=== PATIENT | male | born 1975 | race Caucasian/White ===

== ENCOUNTER 2016-10-18 15:32 | Inpatient (IN) | payer OTHER ==
[~2016-10-18] VITALS: Ht 180.3 cm; Wt 95.3 kg
[~2016-10-18 15:32] MED LIST: ASPIR 8181 MG PO; ASPIRIN81 MG PO; B-125000 MC1 PO; BUSPIRONE HCL15 MG PO; CALCIUM 600 +1 EA12 PO; ELAVIL 25 MG TA25 MG PO; ELIQUIS2.5 MG PO; FERROUS SULFAT325 MG PO; FOLIC ACID 1 MG1 MG PO; FOLIC ACID1 MG PO; GLUCOPHAGE 500500 MG PO; IMDUR ER TAB 6060 MG PO; INVANZ 1 GM VIAL1 GM IV; JANUVIA 100 MG100 MG PO; K-DUR TAB 20 M20 MEQ PO; LASIX20 MG PO; LIORESAL TAB 1010 MG PO; LIPITOR TAB 2020 MG PO; LORTAB 7.5-3251 EACH PO; METOPROLOL; METOPROLOL TART25 MG PO; NEURONTIN 400400 MG PO; NEURONTIN800 MG PO; OXYBUTYNIN CHLOR5 MG PO; PLAVIX 75 MG TA75 MG PO; PROTONIX40 MG PO; ULORIC80 MG PO; VITAMIN C 500500 MG PO; ZINC50 M1 PO
[2016-10-18 18:19] LABS: HEMOGLOBIN 13.2 gm/dl (14.0-17.5); RED BLOOD COUNT 5.83 M/UL (4.20-5.50); WHITE BLOOD COUNT 11.4 K/UL (4.5-11.0)
[2016-10-18 18:32] LABS: BUN/CREATININE RATIO 16 (0-10)
[2016-10-18] MEDS ORDERED: ALL DAY ALLERGY10 M3 PO (21:07)
[2016-10-18] MEDS ORDERED: XANAX0.5 MG PO (21:08)
[2016-10-18] MEDS ORDERED: FLONASE 0.05% N16 GM ×2 (21:08→22:36)
[2016-10-18] MEDS ORDERED: SENNA CONCENTR8.6 MG PO (21:09)
[2016-10-18] MEDS ORDERED: ONCE DAILY1 EACH PO (21:16)
[2016-10-18] MEDS ORDERED: LORTAB 7.5-3251 EACH PO (21:44)
[2016-10-18] MEDS ORDERED: CETIRIZINE HCL10 MG PO (22:36)
[2016-10-18] MEDS ORDERED: MULTIVITAMINS1 EAC2 PO (22:37)
[2016-10-18] MEDS ORDERED: SENNA8.6 MG PO (22:37)
--- NOTE | 2016-10-19 00:15 | NUR ---
ADMISSION SKIN ASSESSMENT CONTINUED: LEFT POSTERIOR THIGH #1, UPPER, STAGE 1 4.5 X 6.0 CM REDDENED AREA. BLANCHES, BUT SLOWLY. LEFT POSTERIOR THIGH #2, MIDDLE, STAGE 2, 3.5 X 3.5 CM CIRCULAR, RED WOUND BED WITH WHITE EDGES WITH SURROUNDING REDNESS. NO DRAINAGE NOTED. LEFT POSTERIOR THIGH #3, LOWER, 3CM X 1CM DRY SCABBED HEALING AREA WITH SCARRING SUROUNDING. RT HEEL, 4 DRIED SCABBED AREAS WITH APPEARANCE OF HEALING. RT OUTER FOOT DRIED SCABBED AREA, APPEARANCE OF HEALING. RT ANKLE OUTER, DRY HEALED SCARRED AREA. RT FOOT EDEMATOUS, COOL TO TOUCH PULSE THREADY NOTED MULTIPLE SCATTERED SCARS AND SCABBED AREAS ON BILATERAL LOWER EXTREMITIES, CHEST, ABD BACK AND ARMS. PT STATES FROM "SORES THAT JUST POP UP AND THEN GO AWAY"
[2016-10-19 04:51] LABS: HEMOGLOBIN 12.4 gm/dl (14.0-17.5); RED BLOOD COUNT 5.49 M/UL (4.20-5.50); WHITE BLOOD COUNT 8.7 K/UL (4.5-11.0)
[2016-10-19 04:55] LABS: BUN/CREATININE RATIO 19 (0-10)
[2016-10-20 04:55] LABS: HEMOGLOBIN 12.2 gm/dl (14.0-17.5); RED BLOOD COUNT 5.38 M/UL (4.20-5.50); WHITE BLOOD COUNT 8.1 K/UL (4.5-11.0)
[2016-10-20 04:56] LABS: BUN/CREATININE RATIO 28 (0-10)
[2016-10-21 04:59] LABS: RED BLOOD COUNT 4.48 M/UL (4.20-5.50); WHITE BLOOD COUNT 7.9 K/UL (4.5-11.0)
[2016-10-21 05:00] LABS: HEMOGLOBIN 10.1 gm/dl (14.0-17.5)
[2016-10-21 05:06] LABS: BUN/CREATININE RATIO 25 (0-10)
[2016-10-22 04:33] LABS: HEMOGLOBIN 11.3 gm/dl (14.0-17.5); RED BLOOD COUNT 5.05 M/UL (4.20-5.50); WHITE BLOOD COUNT 8.7 K/UL (4.5-11.0)
[2016-10-22 04:42] LABS: BUN/CREATININE RATIO 16 (0-10)
[2016-10-23 07:25] LABS: BUN/CREATININE RATIO 28 (0-10)
[2016-10-23 08:15] LABS: HEMOGLOBIN 11.5 gm/dl (14.0-17.5); RED BLOOD COUNT 5.16 M/UL (4.20-5.50); WHITE BLOOD COUNT 6.9 K/UL (4.5-11.0)
[2016-10-24 07:53] LABS: BUN/CREATININE RATIO 30 (0-10)
[2016-10-27] MEDS ORDERED: METOPROLOL TART25 MG PO (15:54)
[2016-10-27] MEDS ORDERED: EFFEXOR XR75 MG PO (15:54)
[2016-10-27] MEDS ORDERED: CEFTAZIDIME1 GM IV (15:56)
== END 2016-10-27 16:40 | disposition home health service (06) | DRG 474 ==
LOC: ER1 15:32 → ZEROF 18:55 → MED SURG 4 18:55
PROVIDERS: Family Medicine; Internal Medicine; Orthopaedic Surgery; ADMIT Internal Medicine
PROC: 0Y6J0Z2 Detachment at Left Lower Leg, Mid, Open Approach (ICD-10-PCS; principal; 2016-10-20 11:00)
PROC: 05HM33Z Insertion of Infusion Device into Right Internal Jugular Vein, Percutaneous Approach (ICD-10-PCS; 2016-10-26)
PROC: 0JH60XZ Insertion of Tunneled Vascular Access Device into Chest Subcutaneous Tissue and Fascia, Open Approach (ICD-10-PCS; 2016-10-26)
DX: T87.44 Infection of amputation stump, left lower extremity (principal); L89.313 Pressure ulcer of right buttock, stage 3; L89.893 Pressure ulcer of other site, stage 3; L89.323 Pressure ulcer of left buttock, stage 3; L89.153 Pressure ulcer of sacral region, stage 3; G82.20 Paraplegia, unspecified; L97.921 Non-pressure chronic ulcer of unspecified part of left lower leg limited to breakdown of skin; L97.911 Non-pressure chronic ulcer of unspecified part of right lower leg limited to breakdown of skin; T87.81 Dehiscence of amputation stump; F17.210 Nicotine dependence, cigarettes, uncomplicated; M25.852 Other specified joint disorders, left hip; M25.851 Other specified joint disorders, right hip; L89.612 Pressure ulcer of right heel, stage 2; L89.892 Pressure ulcer of other site, stage 2; L85.3 Xerosis cutis; Z88.1 Allergy status to other antibiotic agents; F32.9 Major depressive disorder, single episode, unspecified; Z79.899 Other long term (current) drug therapy; D50.9 Iron deficiency anemia, unspecified; Z96.1 Presence of intraocular lens; Z87.898 Personal history of other specified conditions; Z93.3 Colostomy status; Z99.3 Dependence on wheelchair; Z82.49 Family history of ischemic heart disease and other diseases of the circulatory system; Z79.82 Long term (current) use of aspirin; Z86.19 Personal history of other infectious and parasitic diseases; B96.20 Unspecified Escherichia coli [E. coli] as the cause of diseases classified elsewhere; A48.8 Other specified bacterial diseases; R00.0 Tachycardia, unspecified; I10 Essential (primary) hypertension; I45.10 Unspecified right bundle-branch block
CPT/HCPCS: 36415; 71010; 73590; 77001; 80048; 80053; 80202; 83735; 85025; 85027; 85610; 85730; 86140; 87070; 87077; 87186; 93005; 99284; C1769; C1788; J0713; J1335; J1644; J1650; J1885; J2250; J2270; J3010; J3370; J7030; J7050; J7070; J7120

== ENCOUNTER 2016-11-10 05:47 | Inpatient (IN) | payer OTHER ==
[~2016-11-10] VITALS: Ht 180.3 cm; Wt 111.1 kg
[~2016-11-10 05:47] MED LIST changes: +ALL DAY ALLERGY10 M3 PO; +CEFTAZIDIME1 GM IV; +CETIRIZINE HCL10 MG PO; +EFFEXOR XR75 MG PO; +FLONASE 0.05% N16 GM; +MULTIVITAMINS1 EAC2 PO; +ONCE DAILY1 EACH PO; +SENNA CONCENTR8.6 MG PO; +SENNA8.6 MG PO; +XANAX0.5 MG PO
[2016-11-10 06:59] LABS: HEMOGLOBIN 11.7 gm/dl (14.0-17.5); RED BLOOD COUNT 5.26 M/UL (4.20-5.50); WHITE BLOOD COUNT 6.4 K/UL (4.5-11.0)
[2016-11-10 07:07] LABS: BUN/CREATININE RATIO 26 (0-10)
[2016-11-10 15:01] LABS: HEMOGLOBIN 10.7 gm/dl (14.0-17.5)
[2016-11-10 15:25] LABS: BUN/CREATININE RATIO 14 (0-10)
[2016-11-11 05:17] LABS: RED BLOOD COUNT 3.8 M/UL (4.20-5.50)
[2016-11-11 05:43] LABS: BUN/CREATININE RATIO 28 (0-10)
[2016-11-11 16:25] LABS: HEMOGLOBIN 7.1 gm/dl (14.0-17.5)
[2016-11-12 01:44] LABS: HEMOGLOBIN 8.4 gm/dl (14.0-17.5); WHITE BLOOD COUNT 7.7 K/UL (4.5-11.0)
[2016-11-12 01:48] LABS: RED BLOOD COUNT 3.37 M/UL (4.20-5.50)
[2016-11-12 01:59] LABS: BUN/CREATININE RATIO 20 (0-10)
[2016-11-12 18:14] LABS: HEMOGLOBIN 8.5 gm/dl (14.0-17.5)
[2016-11-13 03:37] LABS: HEMOGLOBIN 8.5 gm/dl (14.0-17.5); RED BLOOD COUNT 3.42 M/UL (4.20-5.50); WHITE BLOOD COUNT 6.5 K/UL (4.5-11.0)
[2016-11-13 03:52] LABS: BUN/CREATININE RATIO 20 (0-10)
[2016-11-14 06:22] LABS: HEMOGLOBIN 8.9 gm/dl (14.0-17.5); RED BLOOD COUNT 3.48 M/UL (4.20-5.50); WHITE BLOOD COUNT 6.7 K/UL (4.5-11.0)
[2016-11-16 05:59] LABS: HEMOGLOBIN 8.6 gm/dl (14.0-17.5)
[2016-11-17 06:16] LABS: HEMOGLOBIN 7.9 gm/dl (14.0-17.5); RED BLOOD COUNT 3.21 M/UL (4.20-5.50); WHITE BLOOD COUNT 5.4 K/UL (4.5-11.0)
[2016-11-18 05:30] LABS: HEMOGLOBIN 8.3 gm/dl (14.0-17.5); RED BLOOD COUNT 3.35 M/UL (4.20-5.50); WHITE BLOOD COUNT 4.4 K/UL (4.5-11.0)
[2016-11-18 05:55] LABS: BUN/CREATININE RATIO 30 (0-10)
== END 2016-11-19 17:09 | DRG 500 ==
LOC: ZOBSOF 05:47 → OR 08:15 → EDSTATUS 08:15 → OR 11:15 → CCU 16:33 → MED SURG 4 11-13 11:36
PROVIDERS: Anesthesiology; Internal Medicine; ADMIT Orthopaedic Surgery
PROC: 0KBN0ZZ Excision of Right Hip Muscle, Open Approach (ICD-10-PCS; 2016-11-10)
PROC: 30233H1 Transfusion of Nonautologous Whole Blood into Peripheral Vein, Percutaneous Approach (ICD-10-PCS; 2016-11-10)
PROC: 0KBP0ZZ Excision of Left Hip Muscle, Open Approach (ICD-10-PCS; principal; 2016-11-10 08:15)
PROC: 30233H1 Transfusion of Nonautologous Whole Blood into Peripheral Vein, Percutaneous Approach (ICD-10-PCS; 2016-11-11)
DX: M61.2 Paralytic calcification and ossification of muscle (principal); R57.1 Hypovolemic shock; L89.154 Pressure ulcer of sacral region, stage 4; L89.894 Pressure ulcer of other site, stage 4; G82.20 Paraplegia, unspecified; E87.2 Acidosis; D62 Acute posthemorrhagic anemia; Y33.XXXS Other specified events, undetermined intent, sequela; I45.10 Unspecified right bundle-branch block; B96.89 Other specified bacterial agents as the cause of diseases classified elsewhere; D50.9 Iron deficiency anemia, unspecified; F17.210 Nicotine dependence, cigarettes, uncomplicated; R00.0 Tachycardia, unspecified; Z79.899 Other long term (current) drug therapy; Z82.49 Family history of ischemic heart disease and other diseases of the circulatory system; Z89.512 Acquired absence of left leg below knee; Z93.3 Colostomy status; Z88.1 Allergy status to other antibiotic agents
CPT/HCPCS: 36415; 36430; 72170; 80048; 80053; 82962; 83605; 83735; 85014; 85018; 85025; 85027; 86140; 86850; 86900; 86901; 86920; 87070; 87075; 87077; 87186; 87205; 93005; 97110; 97530; A6243; J0690; J1644; J1650; J1885; J2020; J2250; J2270; J2370; J2543; J2710; J3010; J7030; J7040; J7050; J7120; J7197; P9016; P9045

== ENCOUNTER → 2021-11-25 | Outpatient (CLI) | payer MEDICARE ==
[~2021-11-25] MED LIST changes: +AMBIEN10 MG PO; +ASPIRIN 325MG325 MG PO; +CATAPRES 0.1MG0.1 MG PO; +CEFEPIME HCL2 GM INJ; +CEROVITE ADVAN1 EACH PO; +CULTURELLE1 EACH PO; +DAKIN'S473 M1 MC; +DITROPAN XL5 MG PO; +DULCOLAX10 MG PR; +FEOSOL325 MG PO; +K-DUR TAB 10 M10 MEQ PO; +LEVAQUIN750 MG PO; +LOTRIMIN CREAM15 GM TP; +MAALOX PLUS 3030 ML PO; +MEROPENEM1 GM IV; +MERREM I.V. 50500 MG IV; +MICONAZOLE100 GM MC; +MINOCIN100 M1 IV; +MINOCYCLINE HC100 M1 PO; +MONISTAT 324 GM TOP; +NICOTINE PATCH1 EAC1 TD; +NIZORAL 2% SHA120 ML EXT; +NORCO 10-325 T1 EACH PO; +NORCO 7.5-3251 EACH PO; +PEPCID20 MG PO; +PERCOCET 10-321 EACH PO; +PERCOCET 7.5-31 EACH PO; +PHENERGAN 25 MG25 M1 PO; +TYLENOL325 MG PO; +VANCOMYCIN HCL10 GM IV; +VENLAFAXINE HC150 M1 PO; +VISTARIL25 MG PO; +VITAMIN C1000 MG PO; +ZOFRAN4 MG PO; +ZYRTEC10 MG PO
== END ==
LOC: RAD 13:27
DX: L97.516 Non-pressure chronic ulcer of other part of right foot with bone involvement without evidence of necrosis (principal); S24.102S Unspecified injury at T2-T6 level of thoracic spinal cord, sequela; Z89.612 Acquired absence of left leg above knee
CPT/HCPCS: 73630